=== PATIENT | male | born 2000 | race Caucasian/White ===

== ENCOUNTER 2023-07-19 00:33 | Emergency (ER) | payer MEDICAID ==
[2023-07-19 00:44] VITALS: BP 132/86; O2SAT 98
[2023-07-19] MEDS ORDERED: LIDOCAINE VISCOUS 2% 15 ML ORAL SYRINGE MM STA (00:55)
[2023-07-19] MEDS ORDERED: IBUPROFEN 600 MG TABLET PO STA (00:55)
[2023-07-19] MEDS ORDERED: oxyCODONE/ACET 5/325 Prepack 4 PO STA (00:55)
--- NOTE | 2023-07-19 00:59 | ED Physician Documentation ---
History of Present Illness - Stated complaint Stated Complaint: JAW AND EAR PX - Chief complaint Chief Complaint: Heent - History obtained from History obtained from: Patient - Additonal information Additional information: 23yM with history of poor dentition presents to the ED with R lower molar infection for Which she has been taking Augmentin the past 3 days. Patient denies fever but states that he has been experiencing stabbing pain intermittently to the tooth radiating to the right ear and jaw denies swelling. PD PAST MEDICAL HISTORY - Present Medications Home Medications: Ambulatory Orders Medication Instructions Recorded Confirmed Oxycodone HCl/Acetaminophen 1 each PO Q4H PRN #8 tablet 07/19/23 [Percocet 5-325 mg Tablet] - Allergies Allergies/Adverse Reactions: Allergies Allergy/AdvReac Type Severity Reaction Status Date / Time morphine Allergy Anaphylaxis Verified 07/19/23 00:43 PD ED PE NORMAL - Vitals Vital signs reviewed: Yes - General General: Alert and oriented X 3, No acute distress, Well developed/nourished - HEENT HEENT: Atraumatic, PERRL, EOMI, Ears normal, Moist mucous membranes, Pharynx benign, Other (Poor dentition. Right posterior molar with erosion to the base but no surrounding fluctuance or swelling. No trismus. No submental hardening) - Neck Neck: Supple, no meningeal sign Results - Vitals Vitals: Vital Signs - 24 hr 07/19/23 00:41 Temperature 36.5 C Heart Rate 54 L Respiratory 16 Rate Blood Pressure 132/86 H O2 Saturation 98 Oxygen O2 Source Room air PD Medical Decision Making - ED course ED course: 23-year-old male presented with right lower molar pain. He states that he has tolerated Percocet well in the past and has not had allergic reaction to it. Ibuprofen, Percocet, lidocaine mouthwash provided with relief. Return precautions given. Patient has appointment to have his tooth extracted next week. Departure - Departure Disposition: 01 Home, Self Care Clinical Impression: Poor dentition Condition: Stable Instructions: ED Tooth Pain Prescriptions: Oxycodone HCl/Acetaminophen [Percocet 5-325 mg Tablet] 1 each PO Q4H PRN #8 tablet PRN Reason: Pain >8 Oxycodone HCl/Acetaminophen [Percocet 5-325 mg Tablet] 1 each PO Q4H PRN #8 tablet PRN Reason: Pain >8 Comments: You were seen in the emergency department for dental pain. Prescription for pain meds sent electronically to [facility]. Please follow-up with your primary care provider and return to the emergency department if you have any new or worsening symptoms or other concerns.
== END 2023-07-19 01:37 | disposition home or self-care (01) ==
LOC: ED 00:33
DX: K08.9 Disorder of teeth and supporting structures, unspecified (principal)
CPT/HCPCS: 99282; 99283; A9270